=== PATIENT | male | born 1935 | race Two or more races ===

== ENCOUNTER 2016-12-24 17:20 | Emergency (ER) | payer MEDICARE, OTHER ==
[~2016-12-24] VITALS: Ht 162.6 cm; Wt 68.0 kg
[2016-12-24] MEDS ORDERED: ASPIRIN81 MG ORAL (17:25)
--- NOTE | 2016-12-24 17:39 | Emergency Room Report ---
History of Present Illness General Chief Complaint: Multiple Trauma/Fall Source: Patient, Family Member, Medical Record Present Illness HPI Patient is 81-year-old male who presented after a fall from wheelchair. The patient was reportedly been transferred when he fell onto his face. He did not lose consciousness. He had reportedly had pain to his forehead. He denied any difficulty with the arm pain or neck pain. Patient prior history of being weak. the patient was awake and alert.The patient denied any pain. Allergies: Coded Allergies: No Known Allergies (Unverified , 12/24/16) Patient History Past Medical History: see triage record Reviewed Nursing Documentation: PMH: Agreed, PSxH: Agreed Nursing Documentation-PMH Past Medical History: No History, Except For Hx Hypertension: Yes History Of Psychiatric Problem: Yes - Anxiety Review of Systems All Other Systems: negative except mentioned in HPI Physical Exam Vital Signs Date Time Temp Pulse Resp B/P Pulse Ox O2 Delivery O2 Flow Rate FiO2 12/24/16 17:20 98.4 62 14 135/79 99 Room Air Sp02 EP Interpretation: reviewed, normal General Appearance: normal inspection, well appearing, no apparent distress, alert, GCS 15 Head: other - forehead ENT: normal ENT inspection, hearing grossly normal, normal voice Neck: normal inspection, full range of motion, supple, no bony tend Respiratory: normal inspection, lungs clear, normal breath sounds, no respiratory distress, no retraction, no wheezing Cardiovascular #1: regular rate, rhythm, no edema Gastrointestinal: normal inspection, normal bowel sounds, non tender, soft, no guarding, no hernia Genitourinary: no CVA tenderness Musculoskeletal: normal inspection, back normal, normal range of motion Neurologic: normal inspection, alert, oriented x3, responsive, 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 Differential diagnosis included was not limited to neck fracture, CVA, close head injury, syncopal episode, basilar ischemia. The laceration was cleansed and closed with Dermabond. Patient had no evidence of acute hemorrhage . The [facility] was [facility]. Return precautions are given family. Last Vital Signs Date Time Temp Pulse Resp B/P Pulse Ox O2 Delivery O2 Flow Rate FiO2 12/24/16 17:20 98.4 62 14 135/79 99 Room Air Status: improved Disposition: HOME, SELF-CARE Darian Galeas Dec 24, 2016 17:39
[2016-12-24] MEDS ORDERED: ATORVASTATIN CA10 MG ORAL (17:48)
[2016-12-24] MEDS ORDERED: POTASSIUM CHLO10 MEQ ORAL (17:48)
[2016-12-24] MEDS ORDERED: ARICEPT10 MG ORAL (17:48)
[2016-12-24] MEDS ORDERED: FUROSEMIDE40 MG ORAL (17:48)
[2016-12-24] MEDS ORDERED: FOLIC ACID1 MG ORAL (17:49)
[2016-12-24] MEDS ORDERED: ATENOLOL50 MG ORAL (17:49)
[2016-12-24] MEDS ORDERED: NAMENDA10 MG ORAL (17:49)
[2016-12-24] MEDS ORDERED: MULTIVITAMINS1 EAC8 ORAL (17:49)
[2016-12-24] MEDS ORDERED: MILK OF MA400 MG/51 ORAL (17:50)
[2016-12-24] MEDS ORDERED: TYLENOL EXTRA500 MG ORAL (17:50)
[2016-12-24] MEDS ORDERED: VITAMIN B COMP1 EAC2 ORAL (17:50)
[2016-12-24] MEDS ORDERED: DULCOLAX10 MG RC (17:53)
[2016-12-24] MEDS ORDERED: LORATADINE10 M1 PO (17:53)
[2016-12-24] MEDS ORDERED: FERROUS SULFAT325 MG ORAL (17:53)
[2016-12-24] MEDS ORDERED: ALBUTEROL SULF8.5 GM INH (17:53)
[2016-12-24 18:01] VITALS: BP 142/65
[2016-12-24] MEDS ORDERED: TdaP Vaccine 0.5ml Syr IM ONE (18:45)
[2016-12-24 19:49] VITALS: BP 142/65
--- NOTE | 2016-12-25 08:44 | Diagnostic Imaging Report ---
Indications: And neck trauma, status post fall today Technique: Spiral acquisitions obtained through the brain. Angled axial and coronal 5 x 5 mm slices were reconstructed. Total dose length product 1411 mGycm. CTDI vol(s) 70 mGy Comparison: None Findings: There is a left supraorbital scalp tissue contusion and laceration. No underlying calvarial abnormality is demonstrated. There is age-related enlargement of ventricles and extra-axial CSF spaces and periventricular deep white matter chronic ischemic change. No acute hemorrhage or edema. No mass effect or midline shift. Normal cee-white differentiation. Impression: Evidence of left supraorbital scalp soft tissue injury Chronic and age-related changes, as described Negative for acute intracranial bleed or mass effect This agrees with the preliminary interpretation provided overnight by Dr. Montes The CT scanner at [facility] is accredited by the [employer] and the scans are performed using protocols designed to limit radiation exposure to as low as reasonably achievable to attain images of sufficient resolution adequate for diagnostic evaluation.
--- NOTE | 2016-12-25 10:37 | Diagnostic Imaging Report ---
Indication: PAIN, trauma Technique: Spiral acquisitions obtained through the cervical spine. No IV contrast utilized. Multiplanar reconstructions were generated. Total dose length product 317 mGycm. CTDIvol(s) 14 mGy Comparison: None Findings: There is some image degradation due to motion artifact. Bony alignment is normal. No prevertebral soft tissue swelling. No acute fractures. No dislocations. Vertebral body heights are preserved. There is degenerative disc narrowing at C6-7. The remaining disc spaces are preserved. At C5-6, there is mild bilateral degenerative neural foraminal narrowing. At C6-7, there is moderate bilateral neural foraminal narrowing. No significant disc bulge or protrusion or spinal stenosis. The left lung apex demonstrates some pleural and parenchymal scarring. The included extraspinal soft tissues are otherwise unremarkable. Impression: No acute bony trauma Mild degenerative changes as detailed above Scarring left lung apex This agrees with the preliminary interpretation provided overnight by Dr. Montes The CT scanner at [facility] is accredited by the [employer] and the scans are performed using protocols designed to limit radiation exposure to as low as reasonably achievable to attain images of sufficient resolution adequate for diagnostic evaluation.
== END 2016-12-24 19:49 | disposition home or self-care (01) ==
LOC: EDBD 17:20 → EMR 17:34
DX: S01.81XA Laceration without foreign body of other part of head, initial encounter (principal); W05.0XXA Fall from non-moving wheelchair, initial encounter; Y92.129 Unspecified place in nursing home as the place of occurrence of the external cause; I10 Essential (primary) hypertension; F41.9 Anxiety disorder, unspecified; Z23 Encounter for immunization
CPT/HCPCS: 70450; 72125; 90471; 90715

== ENCOUNTER 2017-05-03 15:00 | Emergency (ER) | payer MEDICARE, OTHER ==
[~2017-05-03] VITALS: Ht 172.7 cm; Wt 81.6 kg
[~2017-05-03 15:00] MED LIST: ALBUTEROL SULF8.5 GM INH; ARICEPT10 MG ORAL; ASPIRIN81 MG ORAL; ATENOLOL50 MG ORAL; ATORVASTATIN CA10 MG ORAL; DULCOLAX10 MG RC; FERROUS SULFAT325 MG ORAL; FOLIC ACID1 MG ORAL; FUROSEMIDE40 MG ORAL; LORATADINE10 M1 PO; MILK OF MA400 MG/51 ORAL; MULTIVITAMINS1 EAC8 ORAL; NAMENDA10 MG ORAL; POTASSIUM CHLO10 MEQ ORAL; TYLENOL EXTRA500 MG ORAL; VITAMIN B COMP1 EAC2 ORAL
--- NOTE | 2017-05-03 15:14 | Emergency Room Report ---
History of Present Illness General Chief Complaint: Multiple Trauma/Fall Source: Patient, EMS Present Illness HPI Patient is an 82-year-old male who presented after having a witnessed fall. Patient fell from wheelchair onto his face. Patient is noted to have history of dementia and is an unable to walk at baseline. The patient had sustained injury to his left index finger as well as to his face. He had no loss of consciousness. Patient was sent in from skilled nursing for further evaluation. Allergies: Coded Allergies: No Known Allergies (Unverified , 12/24/16) Patient History Past Medical History: see triage record Reviewed Nursing Documentation: PMH: Agreed, PSxH: Agreed Nursing Documentation-PMH Hx Hypertension: Yes Review of Systems All Other Systems: negative except mentioned in HPI Physical Exam Vital Signs Date Time Temp Pulse Resp B/P Pulse Ox O2 Delivery O2 Flow Rate FiO2 05/03/17 14:55 60 20 102/58 95 Room Air Sp02 EP Interpretation: reviewed, normal General Appearance: normal inspection, well appearing, no apparent distress, alert Head: atraumatic ENT: normal ENT inspection, hearing grossly normal, normal voice Neck: normal inspection, full range of motion, supple, no bony tend Respiratory: normal inspection, lungs clear, normal breath sounds, no respiratory distress, no retraction, no wheezing Cardiovascular #1: regular rate, rhythm, no edema Gastrointestinal: normal inspection, normal bowel sounds, non tender, soft, no guarding, no hernia Genitourinary: no CVA tenderness Musculoskeletal: normal inspection, back normal, normal range of motion Neurologic: normal inspection, alert, responsive, motor weakness - bilateral lower extremity, resting tremor to both hands Psychiatric: normal inspection, judgement/insight normal, mood/affect normal Skin: no rash, laceration - 0.5 cm to nasal bridge, left index finger skin avulsion Procedures Laceration/Wound Repair Laceration/Wound Repair : Consent: Verbal Wound Location: face Wound's Depth, Shape: superficial Wound Length (cm): 0 Wound Explored: clean Wound Debrided: minimal Wound Repaired With: Dermabond Medical Decision Making Diagnostic Impression: Primary Impression: Fall Additional Impressions: Facial laceration Skin avulsion ER Course Patient presented for fall. Differential diagnosis included was not limited to neck fracture, CVA, close head injury, syncopal episode, basilar ischemia. Because of complexity of patient's case imaging studies were ordered.A CT imaging of the head as well as a cervical spine was obtained. A CT read by radiology showed no evidence of acute hemorrhage or fracture. CT of cervical spine read by radiology show degenerative changes with pulmonary disease. There is no fracture noted. The patient's lacerations were closed with Dermabond . The patient is advised to follow up with primary care doctor in 1- 2 days. Patient is advised to return if any worsening condition or if any changes in status that are concerning. Last Vital Signs Date Time Temp Pulse Resp B/P Pulse Ox O2 Delivery O2 Flow Rate FiO2 05/03/17 14:55 60 20 102/58 95 Room Air Status: improved Disposition: [facility] Condition: Stable Darian Galeas May 03, 2017 15:14
[2017-05-03 16:23] VITALS: BP 111/65
[2017-05-03 19:40] VITALS: BP 110/77
[2017-05-03 19:49] VITALS: BP 110/77
--- NOTE | 2017-05-04 08:32 | Diagnostic Imaging Report ---
Indications: Fall, neck injury, pain Technique: Continuous helical CT imaging of the cervical spine performed with automatic exposure was on a Siemens sensation [address] scanner. Axial, coronal and sagittal images reconstructed at 3 mm slice thicknesses. CTDI volume(s): 14 mGy Total DLP: 271 mGy-cm Findings: Comparison: None. Lordotic curvature is preserved.Vertebral alignment is intact. No fracture, facet subluxation or dislocation, prevertebral soft tissue swelling, or other acute changes are demonstrated. C6-7 disc space narrowing with marginal osteophyte formation. No obvious significant spinal stenosis results. Mild rotatory subluxation at C1-2. Irregular pleural-based linear densities in left lung apex.. IMPRESSION: No evidence of acute cervical injury. 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
--- NOTE | 2017-05-04 08:34 | Diagnostic Imaging Report ---
Indications: Fall, head trauma, pain Technique: Continuous helical CT imaging of the brain was performed with automatic exposure control on a Siemens sensation [address] scanner. Axial and coronal images were reconstructed at 5 mm slice thickness and interval. CTDI volume(s): 70 mGy Total DLP: 1411 mGy-cm Findings: Comparison: 12/24/16 Confluent low attenuation is present in the bilateral periventricular and deep cerebral white matter. Ventricles, cisterns, and sulci are diffusely prominent. No evidence of mass or hemorrhage, mass effect, midline shift, hydrocephalus, or increased intracranial pressure. Bone window images are unremarkable. Visualized paranasal sinuses and mastoid air cells are clear. Frontal supraorbital scalp swollen and increased attenuation. IMPRESSION: Supraorbital scalp hematoma No other evidence of acute injury or other acute intracranial pathology. Chronic microvascular ischemic changes bilateral cerebral white matter. Atrophy The CT scanner at [facility] is accredited by the [employer] and the scans are performed using protocols designed to limit radiation exposure to as low as reasonably achievable to attain images of sufficient resolution adequate for diagnostic evaluation.
== END 2017-05-03 19:52 ==
LOC: EDBD 15:00 → EMR 15:18
DX: S01.81XA Laceration without foreign body of other part of head, initial encounter (principal); S61.201A Unspecified open wound of left index finger without damage to nail, initial encounter; I10 Essential (primary) hypertension; F03.90 Unspecified dementia, unspecified severity, without behavioral disturbance, psychotic disturbance, mood disturbance, and anxiety; W05.0XXA Fall from non-moving wheelchair, initial encounter; Y92.129 Unspecified place in nursing home as the place of occurrence of the external cause
CPT/HCPCS: 70450; 72125